=== PATIENT | male | born 1975 | race African-American/Black ===

== ENCOUNTER 2017-12-31 23:02 | Emergency (ER) | payer BC, OTHER ==
[~2017-12-31] VITALS: Ht 170.2 cm; Wt 100.0 kg
[~2017-12-31 23:02] MED LIST: ATOR10TA84 PO; HYDR-3971 PO; METF500T PO; ZOLM5SPR6 NASAL
[2017-12-31 23:09] VITALS: BP 130/84
[2017-12-31 23:19] LABS: GLUCOSE,POINT OF CARE 238 MG/DL (70-110)
[2017-12-31] MEDS ORDERED: LISI-662 PO (23:23)
== END 2018-01-01 01:30 | disposition left against medical advice (07) ==
LOC: EMS 23:03
DX: H92.01 Otalgia, right ear (principal); R22.0 Localized swelling, mass and lump, head; E11.9 Type 2 diabetes mellitus without complications; E78.00 Pure hypercholesterolemia, unspecified; G43.909 Migraine, unspecified, not intractable, without status migrainosus; F17.210 Nicotine dependence, cigarettes, uncomplicated; Z53.21 Procedure and treatment not carried out due to patient leaving prior to being seen by health care provider

== ENCOUNTER 2022-01-09 18:28 | Emergency (ER) | payer BC ==
[~2022-01-09] VITALS: Ht 170.2 cm; Wt 106.8 kg
[~2022-01-09 18:28] MED LIST changes: -HYDR-3971 PO; +HYDR-4072 PO; +LISI-894 PO; -ZOLM5SPR6 NASAL
[2022-01-09] MEDS ORDERED: GABAPENTIN 300 MG CAPSULE PO ONE (21:00)
[2022-01-09] MEDS ORDERED: KETOROLAC TROMETHAMINE 60 MG/2 ML VIAL IM ONE (21:00)
[2022-01-09] MEDS ORDERED: METHOCARBAMOL 500 MG TABLET PO ONE (21:00)
[2022-01-09] MEDS ORDERED: GABA-1181 PO (21:16)
[2022-01-09 21:48] VITALS: BP 131/85
== END 2022-01-09 21:53 | disposition home or self-care (01) ==
LOC: EMS 18:28
DX: S16.1XXA Strain of muscle, fascia and tendon at neck level, initial encounter (principal); M54.50 Low back pain, unspecified; G89.29 Other chronic pain; E11.9 Type 2 diabetes mellitus without complications; E78.00 Pure hypercholesterolemia, unspecified; G43.909 Migraine, unspecified, not intractable, without status migrainosus; F17.210 Nicotine dependence, cigarettes, uncomplicated; Z85.9 Personal history of malignant neoplasm, unspecified; Z87.39 Personal history of other diseases of the musculoskeletal system and connective tissue; Z98.890 Other specified postprocedural states; Z89.429 Acquired absence of other toe(s), unspecified side; Z88.8 Allergy status to other drugs, medicaments and biological substances; X58.XXXA Exposure to other specified factors, initial encounter; Y93.89 Activity, other specified; Y92.89 Other specified places as the place of occurrence of the external cause; Y99.8 Other external cause status
CPT/HCPCS: 99283; 96372; J1885